=== PATIENT | male | born 1960 | race Caucasian/White ===

== ENCOUNTER 2024-03-22 16:01 | Outpatient (AMB) | payer OTHER, SELFPAY ==
--- NOTE | 2024-03-22 16:05 | A.OFFPC_ITS ---
Vital Signs 03/22/24 16:09 Height 6 ft 3 in Weight 205 lb BMI 25.6 BP 120/70 Blood Pressure Location Lt brachial Position Sitting Pulse 82 Pulse Source Pulse Oximeter Pulse Oximetry (%) 96 Oxygen Delivery Method Room Air Intake Visit Reasons: PE Intake Note: Patient is here today for a physical. 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 ? Pmhx significant for Prostate CA, HLD. Concern--> reports having hoarseness of his voice over the last 7 months. Has not tried any conservative treatment such as antihistamine and nasal sprays. ? .. ? Prostate CA: followed by Oncologist in [facility] and Urologists. Was recieving Leuporon Inj the now has discontinued. Recent PSA done in February of 2024 at 0.11. Patient denies any hematuria or nocturia. Does report weak urinary stream at times. ? .. ? .. ? Colon cancer screening: needs colon in his willing to do colonoscopy in the summer. Vaccines: Up-to-date with COVID vaccine, up-to-date with tetanus vaccine, needs shingles vaccine [facility] Surgical History History of appendectomy History of prostate surgery Family History Mother No problems noted. Father Mental health disorder Dementia Social History (Updated 03/22/24 @ 16:14 by Kian Navarrete PA-C) Housing: House Alcohol intake: current Alcohol intake frequency: a few times a week Alcohol type: beer Patient Tobacco Use Status: Never used Tobacco e-Cigarette/Vaping Use: Never Used Second Hand Smoke Exposure: No service: No Current occupational status: employed Current occupation: [employer] Current occupational exposures/hazards: No Cognitive needs: No Hearing needs: No Vision needs: No Questionnaire PHQ-9 Over the last 2 weeks, how often have you been bothered by any of the following problems? 1. Little interest or pleasure in doing things: not at all 2. Feeling down, depressed, or hopeless: not at all 3. Trouble falling or staying asleep, or sleeping too much: not at all 4. Feeling tired or having little energy: not at all 5. Poor appetite or overeating: not at all 6. Feeling bad about yourself - or that you are a failure or have let yourself or your family down: not at all 7. Trouble concentrating on things, such as reading the newspaper or watching television: not at all 8. Moving or speaking so slowly that other people could have noticed. Or the opposite - being so fidgety or restless that you have been moving around a lot more than usual: not at all 9. Thoughts that you would be better off or of hurting yourself in some way: not at all Total score: 0 Depression Screening Interpretation: Negative Depression Screening Done: Yes 84679 - PHQ-9 Billing: Yes Source: Developed by Drs. Les Pizarro, Kristyn Wong, Mckinley Ty and colleagues, with an educational theodore from [employer]. Thrive Questionnaire Date Thrive assessed: 03/22/24 I am a: Patient What is your living situation today?: I have a steady place to live Within the past 12 months, did the food you bought not last and you didn't have the money to get more?: Never true Within the past 12 months, did you worry whether your food would run out before you got money to buy more?: Never true Do you have trouble paying for medicines?: No Do you have trouble getting transportation to medical appointments?: No Do you have trouble paying your heating and electricity bill?: No Do you have trouble taking care of your child, family member or friend?: No Do you have trouble with day-to-day activities such as bathing, preparing meals, shopping, managing finances, etc.?: No Are you currently unemployed and looking for a job?: No Are you interested in more education?: No Please select the resources that you would like help with: None Currently or been in a relationship where the following occur: No concerns reported THRIVE Score: 0 AUDIT C Alcohol Use Questionnaire (AUDIT-C) 1. How often do you have a drink containing alcohol?: Monthly or less 2. How many drinks containing alcohol do you have on a typical day when you are drinking?: 1 or 2 3. How often do you have six or more drinks on one occasion?: Never Total Score: 1 KATY-7 AMB Questionnaire KATY-7 Date KATY - 7 assessed: 03/22/24 Feeling nervous, anxious, or on edge: 0 = Not at all Not being able to stop or control worryin = Not at all Worrying too much about different things: 0 = Not at all Trouble relaxin = Not at all Being so restless that it is hard to sit still: 0 = Not at all Becoming easily annoyed or irritable: 0 = Not at all Feeling afraid as if something awful might happen: 0 = Not at all Total KATY-7 score (0-4 normal; 5-9 mild; 10-14 moderate; 15-21 severe): 0 Source: Developed by Drs. Les Pizarro, Kristyn Wong, Mckinley arcos nd colleagues, with an educational theodore from [employer]. KATY-7 Assessment Billing KATY-7 Assessment Tool: KATY-7 Assessment 46571 Review of Systems Const Denies body aches, Denies chills, Denies excessive sweating, Denies fatigue, Denies fever(s) and Denies headache(s) Eyes Denies blurry vision ENT Denies dysphagia, Denies vertigo, Denies dizziness, Denies headache(s), Denies hearing loss and Denies tinnitus Card Denies chest pain, Denies chest pain with activity, Denies syncope, Denies irregular heart rhythm and Denies dyspnea Resp Denies chest congestion, Denies cough, Denies hemoptysis, Denies dyspnea and Denies wheezing GI Denies abdominal pain, Denies melena, Denies hematochezia, Denies coffee ground emesis, Denies dysphagia, Denies diarrhea, Denies nausea and Denies vomiting Denies difficulty urinating, Denies dysuria, Denies urinary frequency, Denies urinary hesitancy and Denies urinary urgency Musc Denies arthralgias, Denies limited range of motion, Denies muscle cramps and Denies muscle weakness Skin/Breast Denies rash and Denies skin ulcer Neuro Denies Abnormal speech present, Denies confusion, Denies vertigo, Denies dizziness, Denies syncope, Denies headache(s), Denies memory loss and Denies seizure-like activity Psych Denies anxiety, Denies confusion, Denies depression, Denies memory loss, Denies panic attacks and Denies paranoia Endo Denies excessive sweating, Denies fatigue, Denies flushing, Denies polydipsia and Denies polyuria Aller/Immun Denies wheezing Physical exam (Primary Care) Vital Signs: Last Vital Signs Pulse 82 03/22/24 16:09 BP 120/70 03/22/24 16:09 Pulse Ox 96 03/22/24 16:09 Oxygen Delivery Method Room Air 03/22/24 16:09 BMI result Body Mass Index 25.6 Tobacco/Smoking Status: Tobacco use Status Tobacco use date assessed 02/22/22 02/22/22 08:06 Patient Tobacco Use Status Never used Tobacco 02/22/22 08:06 e-Cigarette/Vaping Use Never Used 02/22/22 08:06 Depression Screening Interpretation: Negative Thrive Assessment: Date of Thrive Assessment Date Thrive assessed 02/22/22 02/22/22 08:06 Currently or been in a relationship where the following occur: No concerns reported Const General: cooperative, comfortable, no acute distress, alert and awake; No confusion Orientation/consciousness: oriented to person, oriented to place, patient oriented x3 and No confusion HENMT Head: Yes normocephalic Ears: external ears normal and TM's normal bilaterally Face and sinus: No sinus tenderness Mouth: Normal oral and palatal mucosa present and tongue normal Teeth and gingiva: dentition normal and gingiva normal Throat: Yes posterior oropharynx normal, Yes tonsils normal and Yes uvula midline Eyes Conjunctivae: conjunctivae normal Sclerae: sclerae normal Pupils: Equal, round and reactive pupils present EOM: EOMs intact bilaterally Direct Ophthalmoscopy: No no photophobia Neck Neck: Yes no lymphadenopathy, No tender and Yes no JVD Thyroid: Thyroid normal Carotids: no bruits Chest Chest palpation & inspection: no tenderness Resp Effort & Inspection: normal respiratory effort, no audible wheezes, not labored and no stridor Auscultation: no crackles, no rales, no rhonchi and no wheezes Cardio Jugular venous distension: no JVD Rate: regular rate, not bradycardic and not tachycardic Rhythm: regular rhythm Bruits: no carotid bruits Peripheral pulses: Peripheral pulses 2+ throughout GI Inspection: Yes normal to inspection, No abdominal wall ecchymosis and No visible herniation Palpation (GI): Soft to palpation, nontender, no guarding, not rigid and No hepatosplenomegaly present Auscultation: normoactive bowel sounds General: Yes no CVA tenderness Back/Spine/Pelvis Back: no CVA tenderness and No back tenderness Cervical Spine: cervical ROM normal Thoracic/Lumbar Spine: thoracic and lumbar spine normal to inspection, straight leg raise negative bilaterally, No thoraco-lumbar ROM limited and No lumbar spinal tenderness Skin Lesions: no lesions Rashes: no rashes Wounds: no wounds Neuro General: oriented to person, oriented to place, patient oriented x3, CN's II-XI intact bilaterally and No confusion Cranial nerves: Yes Equal, round and reactive pupils present and Yes Normal accommodation reflex present Cognition (Neuro): normal cognition Speech: No Abnormal speech present Gait exam (Neuro): Normal gait present Motor exam (neuro): 5/5 motor strength present throughout Extrem Right upper extremity: full ROM; no cyanosis Left upper extremity: full ROM; no cyanosis Right lower extremity: no edema Left lower extremity: no edema Psych Appearance: grossly normal Mental Status: mental status grossly normal Affect: normal affect Attitude: cooperative Thought process: Normal thought process present Assessment and Plan Assessment & Plan (1) Annual physical exam: Code(s): Z00.00 - Encounter for general adult medical examination without abnormal findings (2) HLD (hyperlipidemia): Code(s): E78.5 - Hyperlipidemia, unspecified Qualifiers: Hyperlipidemia type: mixed hyperlipidemia Qualified Code(s): E78.2 - Mixed hyperlipidemia Plan: Patient has a history of elevated total cholesterol and LDL. Did discuss starting statin medication though declines at this time. He will work on lifestyle to reduce high cholesterol foods in his diet. Goal LDL to be below 160 (3) H/O prostate cancer: Code(s): Z85.46 - Personal history of malignant neoplasm of prostate Plan: Continues to follow urologist on annual basis. Recent PSA done in October of 2023 at 0.11. Has followed up with his urologist and will be getting his PSA checked every 3 months. Otherwise denies any urinary symptoms . (4) Colon cancer screening: Code(s): Z12.11 - Encounter for screening for malignant neoplasm of colon Plan: Has gets a get colon cancer screening. 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 (5) Hoarseness of voice: Code(s): R49.0 - Dysphonia Plan: Reports he has had hoarseness of voice over the last 7 months. Has not tried any conservative treatments. Advised on antihistamine. Somewhat concerned about this hoarseness of voice and the extent of how long his symptoms have been going on. Strongly advised ENT evaluation for laryngeal scope. Orders: Orders Complete Blood Count no Diff Today E78.2 - Mixed hyperlipidemia Comprehensive [place]. Panel Fast Today Z13.1 - Encounter for screening for diabetes mellitus Lipid Panel Today E78.2 - Mixed hyperlipidemia Referrals Gastroenterology Referral Z12.11 - Encounter for screening for malignant neoplasm of colon Coding Level of Care Code Est Pt Prev Care 40-64y([id number]) Diagnoses Annual physical exam Z00.00 Mixed hyperlipidemia E78.2 Hyperlipidemia type: mixed hyperlipidemia H/O prostate cancer Z85.46 Colon cancer screening Z12.11 Hoarseness of voice R49.0 Additional Codes KATY-7 Assessment Billing - KATY-7 Assessment Tool: KATY-7 Assessment 79005 ([id number])
[2024-03-22 16:09] VITALS: BP 120/70; PULSE 82; O2SAT 96; BMI 25.6
== END 2024-03-22 16:30 | disposition home or self-care (01) ==
PROVIDERS: PCP Physician Assistant; Visit Provider Physician Assistant
DX: Z00.00 Encounter for general adult medical examination without abnormal findings (principal); E78.2 Mixed hyperlipidemia; Z85.46 Personal history of malignant neoplasm of prostate; Z12.11 Encounter for screening for malignant neoplasm of colon; R49.0 Dysphonia
CPT/HCPCS: 99396

== ENCOUNTER 2024-03-27 06:31 | Outpatient (REF) | payer OTHER, SELFPAY ==
[2024-03-27 07:38] LABS: Hematocrit 46.3 % (42.0-52.0); Hemoglobin 15.2 g/dl (14.0-18.0); Mean Corpuscular HGB Conc 32.8 g/dl (31.0-36.0); Mean Corpuscular Hemoglobin 29.1 pg (27.0-33.0); Mean Corpuscular Volume 88.5 fL (80.0-98.0); Mean Platelet Volume 10.8 fL (9.4-12.4); Platelet Count 228 X10*3/uL (160-400); Red Blood Count 5.23 X10*6/uL (4.60-5.80); Red Cell Distribution Width 13.6 % (11.0-16.0)
[2024-03-27 07:53] LABS: Alanine Aminotransferase 17 U/L (0-40); Albumin Level 4.5 g/dL (3.5-5.0); Alkaline Phosphatase 52 U/L (39-117); Anion Gap 13 (12-20); Aspartate Amino Transferase 13 U/L (5-37); Bilirubin Total 0.4 mg/dL (0.0-1.0); Blood Urea Nitrogen 13 mg/dL (9-16); Calcium 9.9 mg/dL (8.4-10.2); Carbon Dioxide 27 mmol/L (22-29); Chloride 107 mmol/L (96-108); Cholesterol 236 mg/dL (<200); Estimated Glomerular Filt Rate > 60; Glucose Fasting 95 mg/dL (60-99); HDL Cholesterol 64 mg/dL (>40); LDL Cholesterol Calculated 155 mg/dL (<100); Potassium 4.1 mmol/L (3.3-5.1); Sodium 143 mmol/L (135-145); Total Protein 7.1 g/dL (6.5-8.0); Triglycerides 89 mg/dL (<150)
== END 2024-03-27 06:32 | disposition home or self-care (01) ==
LOC: HO.LAB 06:31
PROVIDERS: PCP Physician Assistant; Visit Provider Physician Assistant
DX: Z13.1 Encounter for screening for diabetes mellitus (principal); E78.2 Mixed hyperlipidemia
CPT/HCPCS: 36415; 80053; 80061; 85027

== ENCOUNTER 2025-03-26 08:00 | Outpatient (AMB) | payer OTHER, SELFPAY ==
--- OUTSIDE RECORDS SUMMARY | 2025-03-26 08:04 | XMS_ITS | Patient Health Record ---
[facility] Address [address] [place] [address] Care Team Providers Care Emt Dispatcher Name Role Phone Sergio Kent MD Primary Care Provider Emigdio Caro Aguirre Unavailable [phone] Reason For Referral No Information Medications Medication SIG (Take, Route, Frequency, Duration) Notes Start Date End Date Status Lupron Active Social History Tobacco Use: Social History Observation Description Date Details (start date - stop date) Never Smoker NA - NA Tobacco Use/Smoking Question Answer Notes Are you a: nonsmoker Additional Findings: Tobacco Non-User Current no n-smoker Alcohol Screen Question Answer Notes Did you have a drink containing alcohol in the p ast year? Yes Points 0 Interpretation Negative Tobacco use other than smoking: Question Answer Notes Are you an other tobacco user? No Problems No Known Problems Plan Of Treatment No Information Insurance Providers Payer Name Payer Address Payer Phone Subscriber Number Group Number Insured Name Patient Relationship to Insured Coverage Start Date Coverage End Date [facility] [address] [place] [address] [id number] Delmar Maria Self - patient is the insured Medical (General) History Medical History History ICD Code Cancer Chicken pox Back,Hip,and Knee pain
--- NOTE | 2025-03-26 08:06 | A.OFFPC_ITS ---
Vital Signs 03/26/25 08:07 Height 6 ft 3 in Weight 212 lb 2 oz BMI 26.5 BP 130/72 Blood Pressure Location Lt brachial Position Sitting Pulse 64 Pulse Source Pulse Oximeter Temp 97.1 F Temp Source Temporal Artery Scan Pulse Oximetry (%) 97 Oxygen Delivery Method Room Air Intake Visit Reasons: Annual Exam Intake Note: Patient is here today for a physical. 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 Accompanied by: Spouse Allergies No Known Allergies Allergy (Verified 03/26/25 08:15) Medication List - Last Reconciled 03/26/25 by Kian Navarrete PA-C No Known Home Meds Tobacco use date assessed: 03/26/25 Fall risk assessment: No Falls in past year Last assessed Fall Risk: 03/26/25 Dental Screening Dental Screen Date: 03/26/25 Did you have a dental visit in the last 12 months?: Yes Did you have a dental problem in the last 6 months where you did not have access to dental care?: No Was dental information given to patient?: Patient has dentist HPI Annual Exam HPI Details Delmar is a 64 y/o M here today for a PE. ? Pmhx significant for Prostate CA, HLD. Concern--> The patient reports bilateral shoulder pain, exacerbated by movement such as reaching back or lifting arms. He has not undergone any specific interventions for this pain yet. Chronic lower back pain is noted, with the pain localized to the lower back and not radiating to the legs. The patient has not previously sought treatment for this condition. The patient experiences hoarseness, which fluctuates in severity and is possibly related to allergies. No ENT evaluation has been conducted yet, but a referral is planned. .. ? .. ? Prostate CA: followed by Oncologist in [facility] and Urologists. . Patient with a history of prostate cancer in recently noted elevation in his PSAs. Most recent PSA at 0.19, recent PET scanning from December 2024 showed a subtle focus of activity in the medial clavicle. Patient denies any hematuria or nocturia. Does report weak urinary stream at times. ? .. ? .. ? Colon cancer screening: needs colon in his willing to do Cologuard as he has a hard time with the anesthesia Vaccines: Up-to-date with COVID vaccine, up-to-date with tetanus vaccine, needs shingles vaccine Patient with a history of prostate cancer in recently noted elevation in his PSAs. Most recent PSA at 0.19, recent PET scanning from December 2024 showed a subtle focus of activity in the medial clavicle [facility] Surgical History History of appendectomy History of prostate surgery Family History Mother No problems noted. Father Mental health disorder Dementia Social History (Updated 03/26/25 @ 08:24 by Kian Navarrete PA-C) Housing: House Alcohol intake: current Alcohol intake frequency: a few times a week Alcohol type: beer Patient Tobacco Use Status: Never used Tobacco e-Cigarette/Vaping Use: Never Used Second Hand Smoke Exposure: No service: No Current occupational status: employed Current occupation: [employer] Current occupational exposures/hazards: No Cognitive needs: No Hearing needs: No Vision needs: Yes (Reading glasses) Questionnaire PHQ-9 Over the last 2 weeks, how often have you been bothered by any of the following problems? 1. Little interest or pleasure in doing things: not at all 2. Feeling down, depressed, or hopeless: not at all 3. Trouble falling or staying asleep, or sleeping too much: not at all 4. Feeling tired or having little energy: several days 5. Poor appetite or overeating: not at all 6. Feeling bad about yourself - or that you are a failure or have let yourself or your family down: not at all 7. Trouble concentrating on things, such as reading the newspaper or watching television: not at all 8. Moving or speaking so slowly that other people could have noticed. Or the opposite - being so fidgety or restless that you have been moving around a lot more than usual: not at all 9. Thoughts that you would be better off or of hurting yourself in some way: not at all Total score: 1 Depression Screening Interpretation: Positive Depression Screening Done: Yes 19815 - PHQ-9 Billing: Yes Source: Developed by Drs. Les Pizarro, Kristyn Wong, Mckinley Ty and colleagues, with an educational theodore from [employer]. Thrive Questionnaire Date Thrive assessed: 03/26/25 I am a: Patient What is your living situation today?: I have a steady place to live Within the past 12 months, did the food you bought not last and you didn't have the money to get more?: Never true Within the past 12 months, did you worry whether your food would run out before you got money to buy more?: Never true Do you have trouble paying for medicines?: No Do you have trouble getting transportation to medical appointments?: No Do you have trouble paying your heating and electricity bill?: No Do you have trouble taking care of your child, family member or friend?: No Do you have trouble with day-to-day activities such as bathing, preparing meals, shopping, managing finances, etc.?: No Are you currently unemployed and looking for a job?: No Are you interested in more education?: No Please select the resources that you would like help with: None Currently or been in a relationship where the following occur: No concerns reported THRIVE Score: 0 AUDIT C Alcohol Use Questionnaire (AUDIT-C) 1. How often do you have a drink containing alcohol?: 2-3 times a week 2. How many drinks containing alcohol do you have on a typical day when you are drinking?: 1 or 2 3. How often do you have six or more drinks on one occasion?: Never Total Score: 3 KATY-7 AMB Questionnaire KATY-7 Date KATY - 7 assessed: 03/26/25 Feeling nervous, anxious, or on edge: 0 = Not at all Not being able to stop or control worryin = Not at all Worrying too much about different things: 0 = Not at all Trouble relaxin = Not at all Being so restless that it is hard to sit still: 0 = Not at all Becoming easily annoyed or irritable: 0 = Not at all Feeling afraid as if something awful might happen: 0 = Not at all Total KATY-7 score (0-4 normal; 5-9 mild; 10-14 moderate; 15-21 severe): 0 Source: Developed by Drs. Les Pizarro, Kristyn Wong, Mckinley Ty and colleagues, with an educational theodore from [employer]. KATY-7 Assessment Billing KATY-7 Assessment Tool: KATY-7 Assessment 73688 Review of Systems Const Denies body aches, Denies chills, Denies excessive sweating, Denies fatigue, Denies fever(s) and Denies headache(s) Eyes Denies blurry vision ENT Denies dysphagia, Denies vertigo, Denies dizziness, Denies headache(s), Denies hearing loss and Denies tinnitus Card Denies chest pain, Denies chest pain with activity, Denies syncope, Denies irregular heart rhythm and Denies dyspnea Resp Denies chest congestion, Denies cough, Denies hemoptysis, Denies dyspnea and Denies wheezing GI Denies abdominal pain, Denies melena, Denies hematochezia, Denies coffee ground emesis, Denies dysphagia, Denies diarrhea, Denies nausea and Denies vomiting Denies difficulty urinating, Denies dysuria, Denies urinary frequency, Denies urinary hesitancy and Denies urinary urgency Musc Denies arthralgias, Denies limited range of motion, Denies muscle cramps and Denies muscle weakness Skin/Breast Denies rash and Denies skin ulcer Neuro Denies Abnormal speech present, Denies confusion, Denies vertigo, Denies dizziness, Denies syncope, Denies headache(s), Denies memory loss and Denies seizure-like activity Psych Denies anxiety, Denies confusion, Denies depression, Denies memory loss, Denies panic attacks and Denies paranoia Endo Denies excessive sweating, Denies fatigue, Denies flushing, Denies polydipsia and Denies polyuria Aller/Immun Denies wheezing Physical exam (Primary Care) Vital Signs: Last Vital Signs Temp 97.1 F 03/26/25 08:07 Pulse 64 03/26/25 08:07 BP 130/72 03/26/25 08:07 Pulse Ox 97 03/26/25 08:07 Oxygen Delivery Method Room Air 03/26/25 08:07 BMI result Body Mass Index 26.5 Tobacco/Smoking Status: Tobacco use Status Tobacco use date assessed 03/26/25 03/26/25 08:11 Patient Tobacco Use Status Never used Tobacco 03/26/25 08:24 e-Cigarette/Vaping Use Never Used 03/26/25 08:24 PHQ-9: PHQ-9 Score PHQ-9: Total score 1 03/26/25 08:17 Depression Screening Interpretation: Positive Thrive Assessment: Date of Thrive Assessment Date Thrive assessed 03/26/25 03/26/25 08:11 Currently or been in a relationship where the following occur: No concerns reported Const General: cooperative, comfortable, no acute distress, alert and awake; No confusion Orientation/consciousness: oriented to person, oriented to place, patient oriented x3 and No confusion HENMT Head: Yes normocephalic Ears: external ears normal and TM's normal bilaterally Face and sinus: No sinus tenderness Mouth: Normal oral and palatal mucosa present and tongue normal Teeth and gingiva: dentition normal and gingiva normal Throat: Yes posterior oropharynx normal, Yes tonsils normal and Yes uvula midline Eyes Conjunctivae: conjunctivae normal Sclerae: sclerae normal Pupils: Equal, round and reactive pupils present EOM: EOMs intact bilaterally Direct Ophthalmoscopy: No no photophobia Neck Neck: Yes no lymphadenopathy, No tender and Yes no JVD Thyroid: Thyroid normal Carotids: no bruits Chest Chest palpation & inspection: no tenderness Resp Effort & Inspection: normal respiratory effort, no audible wheezes, not labored and no stridor Auscultation: no crackles, no rales, no rhonchi and no wheezes Cardio Jugular venous distension: no JVD Rate: regular rate, not bradycardic and not tachycardic Rhythm: regular rhythm Bruits: no carotid bruits Peripheral pulses: Peripheral pulses 2+ throughout GI Inspection: Yes normal to inspection, No abdominal wall ecchymosis and No visible herniation Palpation (GI): Soft to palpation, nontender, no guarding, not rigid and No hepatosplenomegaly present Auscultation: normoactive bowel sounds General: Yes no CVA tenderness Back/Spine/Pelvis Back: no CVA tenderness and No back tenderness Cervical Spine: cervical ROM normal Thoracic/Lumbar Spine: thoracic and lumbar spine normal to inspection, straight leg raise negative bilaterally, No thoraco-lumbar ROM limited and No lumbar spinal tenderness Skin Lesions: no lesions Rashes: no rashes Wounds: no wounds Neuro General: oriented to person, oriented to place, patient oriented x3, CN's II-XI intact bilaterally and No confusion Cranial nerves: Yes Equal, round and reactive pupils present and Yes Normal accommodation reflex present Cognition (Neuro): normal cognition Speech: No Abnormal speech present Gait exam (Neuro): Normal gait present Motor exam (neuro): 5/5 motor strength present throughout Extrem Other: BILATERAL SHOULDERS: Full range of motion noted with bilateral shoulders, reported pain over the anterior aspect of shoulders with range of motion exercises Right upper extremity: full ROM; no cyanosis Left upper extremity: full ROM; no cyanosis Right lower extremity: no edema Left lower extremity: no edema Psych Appearance: grossly normal Mental Status: mental status grossly normal Affect: normal affect Attitude: cooperative Thought process: Normal thought process present Coding Level of Care Code Est Pt Prev Care 40-64y(33802) Diagnoses Annual physical exam Z00.00 Bilateral shoulder pain, unspecified chronicity M25.511; M25.512 Chronicity: unspecified Midline low back pain without sciatica, unspecified chronicity M54.50 Back pain laterality: midline Chronicity: unspecified Sciatica presence: without sciatica Mixed hyperlipidemia E78.2 Hyperlipidemia type: mixed hyperlipidemia Hoarseness of voice R49.0 H/O prostate cancer Z85.46 Additional Codes KAYT-7 Assessment Billing - KATY-7 Assessment Tool: KATY-7 Assessment 71478 ([id number]) PHQ-9 - 69907 - PHQ-9 Billing: Yes ([id number]) Assessment & Plan Assessment & Plan (1) Annual physical exam: Code(s): Z00.00 - Encounter for general adult medical examination without abnormal findings Category: Medical Plan: As per HPI (2) Bilateral shoulder pain: Code(s): M25.511 - Pain in right shoulder; M25.512 - Pain in left shoulder Category: Medical Qualifiers: Chronicity: unspecified Qualified Code(s): M25.511 - Pain in right shoulder; M25.512 - Pain in left shoulder Plan: X-rays of both shoulders are planned to assess for arthritis or other structural issues. Physical therapy is recommended to improve range of motion and alleviate pain. (3) Low back pain: Code(s): M54.50 - Low back pain, unspecified Category: Medical Qualifiers: Back pain laterality: midline Chronicity: unspecified Sciatica presence: without sciatica Qualified Code(s): M54.50 - Low back pain, unspecified Plan: X-rays of the lumbar spine are planned to evaluate the cause of chronic pain. Physical therapy is suggested to strengthen the back and reduce pain. (4) HLD (hyperlipidemia): Code(s): E78.5 - Hyperlipidemia, unspecified Category: Medical Qualifiers: Hyperlipidemia type: mixed hyperlipidemia Qualified Code(s): E78.2 - Mixed hyperlipidemia Plan: Patient has a history of borderline high cholesterol. Will recheck his fasting lipid panel to ensure stable. Goal LDL is to be below 160 (5) Hoarseness of voice: Code(s): R49.0 - Dysphonia Category: Medical Plan: An ENT referral is planned for further evaluation of hoarseness. Allergy medications and nasal sprays are recommended to address potential allergic causes. (6) H/O prostate cancer: Code(s): Z85.46 - Personal history of malignant neoplasm of prostate Category: Medical Plan: The patient is currently being managed with Lupron injections, unfortunately PSAs has been rising. radiation therapy is on hold pending further evaluation of PET scan findings. Orders: Orders XR lumbar spine 2-3V Today M54.50 - Low back pain, unspecified Resp Allergy Profile Region I Today R05.9 - Cough, unspecified, R49.0 - Dysphonia XR shoulder RT 1V Today M25.511 - Pain in right shoulder, M25.512 - Pain in left shoulder XR shoulder LT 1V Today M25.511 - Pain in right shoulder, M25.512 - Pain in left shoulder PT Evaluation and Treatment Today M25.511 - Pain in right shoulder, M25.512 - Pain in left shoulder Referrals Ear/Nose/Throat Referral R49.0 - Dysphonia Cologuard Test Z12.11 - Encounter for screening for malignant neoplasm of colon
[2025-03-26 08:07] VITALS: BP 130/72; PULSE 64; TEMP 36.2; O2SAT 97; BMI 26.5
== END 2025-03-26 08:50 | disposition home or self-care (01) ==
LOC: HO.HMCH 08:01
PROVIDERS: PCP Physician Assistant; Visit Provider Physician Assistant
DX: Z00.00 Encounter for general adult medical examination without abnormal findings (principal); M25.511 Pain in right shoulder; M25.512 Pain in left shoulder; M54.50 Low back pain, unspecified; E78.2 Mixed hyperlipidemia; R49.0 Dysphonia; Z85.46 Personal history of malignant neoplasm of prostate

== ENCOUNTER → 2025-03-26 08:00 | Outpatient (BNVA) | payer OTHER, SELFPAY | PROVIDERS: PCP Physician Assistant; Visit Provider Physician Assistant | DX: Z00.00 Encounter for general adult medical examination without abnormal findings (principal); M54.50 Low back pain, unspecified; G89.29 Other chronic pain; R49.0 Dysphonia; M25.511 Pain in right shoulder; M25.512 Pain in left shoulder; E78.2 Mixed hyperlipidemia; Z85.46 Personal history of malignant neoplasm of prostate | CPT/HCPCS: 96127 ==

== ENCOUNTER 2025-03-27 06:10 | Outpatient (REF) | payer OTHER, SELFPAY ==
--- NOTE | ~2025-03-27 | XR_ITS ---
CLINICAL HISTORY: M25.511 - Pain in right shoulder 4 view left shoulder Comparison: None provided Findings: No fractures or dislocations. No significant loss of joint space or osteophytes. No erosions. No radiopaque foreign body. IMPRESSION: 1. No acute findings. No significant degenerative change. This document has been electronically signed by: Pretty Enrique MD on 03/27/2025 10:32:27
--- NOTE | ~2025-03-27 | XR_ITS ---
CLINICAL HISTORY: M25.511 - Pain in right shoulder 4 view right shoulder Comparison: None provided Findings: Bones intact. No dislocations. No significant arthritic change. No erosions. No radiopaque foreign body. IMPRESSION: 1. No acute findings. No significant degenerative change. Consider MRI if there is continued pain. This document has been electronically signed by: Pretty Enrique MD on 03/27/2025 10:33:33
--- NOTE | ~2025-03-27 | XR_ITS ---
CLINICAL HISTORY: M54.50 - Low back pain, unspecified 3 views lumbar spine Comparison: None provided Findings: Five [id number] lumbar-type vertebral bodies. Mild multilevel disc height loss greatest at L4-5 and L5-S1 with lower lumbar facet hypertrophy. No vertebral body height loss. SI joints maintained. IMPRESSION: Degenerative change of the lumbar spine as described. MRI recommended if there are radicular symptoms. This document has been electronically signed by: Pretty Enrique MD on 03/27/2025 10:37:39
--- OUTSIDE RECORDS SUMMARY | 2025-03-27 06:12 | XMS_ITS | Encounter Summary ---
Author Organization [facility] Address [address] [place] [address] Phone Care Team Providers Care [employer] [place] [employer] Name Role Phone Sergio Kent DO Primary Care Provider [phone] Sergio Kent DO Unavailable [phone] Scotyt Carias DO Unavailable [phone] Stephanie Nicole GEOMORPHOLOGY TEACHER Unavailable [phone] Kian Navarrete Primary Care Provider + Raulito Bloom MD Unavailable Encounter Details Date Type Department Care Team (Latest Contact Info) Description 04/19/2018 Transcribe Orders [facility] [address] [place] [address] Scotty Cairas DO [address] [place] [address] [email or web address] Malignant neoplasm of prostate (Primary Dx) Social History Tobacco Use Types Packs/Day Years Used Date Smoking Tobacco: Never Smokeless Tobacco: Never Sex and Gender Information Value Date Recorded Sex Assigned at Male 01/06/2025 6:45 PM EDT Legal Sex Male 8:32 AM EST Gender Identity Male 01/06/2025 6:45 PM EDT Sexual Orientation Not on file documented as of this encounter Plan of Treatment Upcoming Encounters Date Type Department Care Team (Late st Contact Info) Description 05/15/2025 8:30 AM EDT Appointment [facility] [address] [place] [address] Scotty Carias, DO [address] [place] [address] [email or web address] 05/15/2025 9:30 AM EDT Office Visit [facility] [address] [place] [address] Scotty Carias, DO [address] [place] [address] [email or web address] 05/15/2025 10:[address] [facility] [address] [place] [address] Scotty Carias, DO [address] [place] [address] [email or web address] documented as of this encounter Results * Chemistry Hold (04/19/2018 8:40 AM EDT) Blood 04/19/2018 8:40 AM EDT 04/19/2018 8:58 AM EDT us Scotty Carias DO LAB BLOOD ORDERABLES Final Result [facility] documented in this encounter Visit Diagnoses Diagnosis Malignant neoplasm of prostate- Primary documented in this encounter Care Teams [employer] Relationship Specialty Start Date End Date Sergio Kent DO [address] [place] [address] PCP - General Internal Medicine 11/11/15 10/19/22 Kian Navarrete PA [address] [place] [address] PCP - General Physician Counter Intelligence Agent 10/20/22 Sergio Kent DO [address] [place] [address] Historical LMR Provider 06/23/17 Scotty Carias DO [address] [place] [id number] [email or web address] Primary Oncologist Hematology and Oncology 06/23/17 Stephanie Nicole FNP [address] [place] [address] Nurse Practitioner Medical Oncology 08/18/21 11/08/24 Raulito Bloom MD [address] [address] Primary Oncologist Hematology and Oncology 07/11/23 02/05/24 documented as of this encounter Additional Source Comments The information contained in this document represents components of the legal health record. It is not the complete legal health record.[facility]
[2025-03-27 07:11] LABS: Hematocrit 47.0 % (42.0-52.0); Hemoglobin 15.8 g/dl (14.0-18.0); Mean Corpuscular HGB Conc 33.6 g/dl (31.0-36.0); Mean Corpuscular Hemoglobin 29.4 pg (27.0-33.0); Mean Corpuscular Volume 87.5 fL (80.0-98.0); NRBC Abs Auto 0.000 X10*3/uL (0.0-0.012); NRBC Pct Auto 0.0 /100WBC (0.0-0.2); Platelet Count 228 X10*3/uL (160-400); Red Blood Count 5.37 X10*6/uL (4.60-5.80); White Blood Count 4.9 X10*3/uL (4.8-10.8)
[2025-03-27 07:40] LABS: Alanine Aminotransferase 91 U/L (0-40); Albumin Level 4.9 g/dL (3.5-5.0); Alkaline Phosphatase 65 U/L (39-117); Anion Gap 13 (12-20); Aspartate Amino Transferase 36 U/L (5-37); Blood Urea Nitrogen 19 mg/dL (9-16); Calcium 9.8 mg/dL (8.4-10.2); Carbon Dioxide 28 mmol/L (22-29); Chloride 107 mmol/L (96-108); Cholesterol 259 mg/dL (<200); Estimated Glomerular Filt Rate > 60; HDL Cholesterol 63 mg/dL (>40); Potassium 4.1 mmol/L (3.3-5.1); Sodium 144 mmol/L (135-145); Total Protein 7.3 g/dL (6.5-8.0); Triglycerides 119 mg/dL (<150)
[2025-04-03 23:43] LABS: Class Alternaria alternata 0; Class Aspergillus fumigatus 0; Class Bermuda Grass 0; Class Birch 0; Class Cat Dander 0; Class Cladosporium herbarum 0; Class Cockroach 0/1; Class Common Ragweed 0; Class Cottonwood 0/1; Class Derm. pterony 0; Class Dermatophagoides farinae 0; Class Dog Dander 0; Class Elm 0/1; Class Maple Box Elder 0/1; Class Mountain Cedar 0; Class Mouse Urine Protein 0; Class Mugwort 0; Class Oak 0; Class Penicillium crysogenum 0; Class Rough Pigweed 0; Class Sheep Sorrel 0; Class Sycamore 0; Class Timothy Grass 0; Class Walnut Tree 0/1; Class White Ash 0; Class White Mulberry 0; D002 - IgE D farinae <0.10 kU/L; E001 - IgE Cat Dander <0.10 kU/L; E005 - IgE Dog Dander <0.10 kU/L; G006 - IgE Timothy Grass <0.10 kU/L; I006-IgE Cockroach, German 0.21 kU/L; M002 - IgE Cladosporium herbar <0.10 kU/L; M003 - IgE Aspergillus fumigat <0.10 kU/L; M006 - IgE Alternaria alternat <0.10 kU/L; T001 IgE Maple/Box Elder 0.14 kU/L; T006 - IgE Cedar, Mountain <0.10 kU/L; T007 - IgE Oak, White <0.10 kU/L; T008 IgE Elm, American 0.13 kU/L; T010 - IgE Walnut 0.15 kU/L; T011 - IgE Maple Leaf Sycamore <0.10 kU/L; T014 - IgE Cottonwood 0.14 kU/L; T015 - IgE Ash, White <0.10 kU/L; T070 - IgE White Mulberry <0.10 kU/L; W001 - IgE Ragweed, Short <0.10 kU/L; W006 - IgE Mugwort <0.10 kU/L; W014 IgE Pigweed, Common <0.10 kU/L; W018 IgE Sheep Sorrel <0.10 kU/L
== END 2025-03-27 06:11 | disposition home or self-care (01) ==
LOC: HO.XRAY 06:10
PROVIDERS: PCP Physician Assistant; Visit Provider Physician Assistant
DX: E78.2 Mixed hyperlipidemia (principal); Z13.1 Encounter for screening for diabetes mellitus; R05.3 Chronic cough; R49.0 Dysphonia; M54.50 Low back pain, unspecified; M25.511 Pain in right shoulder; M25.512 Pain in left shoulder
CPT/HCPCS: 36415; 72100; 73030; 80053; 80061; 82785; 85027; 86003

== ENCOUNTER → 2025-03-27 06:26 | Outpatient (BNV) | payer OTHER, SELFPAY | PROVIDERS: PCP Physician Assistant; Visit Provider Radiology Diagnostic Radiology | DX: M51.360 Other intervertebral disc degeneration, lumbar region with discogenic back pain only (principal); M25.511 Pain in right shoulder; M25.512 Pain in left shoulder | CPT/HCPCS: 72100; 73030 ==